=== PATIENT | female | born 1985 | race African-American/Black ===

== ENCOUNTER 2020-07-13 10:04 | Emergency (ER) | payer OTHER ==
[2020-07-13 10:24] VITALS: BP 122/76; PULSE 88; TEMP 98.7; BMI 26.5
[2020-07-13 11:34] LABS: BASO % 0.7 % (0-2.0); EOS % 3.6 % (0-4.5); HEMATOCRIT 38.5 % (32.4-45.2); HEMOGLOBIN 12.3 GM/dL (10.7-15.3); LYMPH % 18.6 % (8-40); MCH 23.8 pg (25.7-33.7); MCHC 31.8 g/dl (32.0-36.0); MEAN CELL VOLUME 74.8 fl (80-96); MEAN PLT VOLUME 8.7 fl (7.5-11.1); MONO % 7.4 % (3.8-10.2); NEUT % 69.7 % (42.8-82.8); PLATELET COUNT 269 K/MM3 (134-434); RBC 5.15 M/mm3 (3.60-5.2); RDW 15.3 % (11.6-15.6); WHITE BLOOD COUNT 9.5 K/mm3 (4.0-10.0)
[2020-07-13 11:37] LABS: EPI CELLS 9 /uL (0-25.1); HYALINE CASTS 0 /uL (0-3.1); URINE APPEARANCE CLEAR; URINE BACTERIA 382 /uL (0-1359); URINE BILIRUBIN NEGATIVE (NEGATIVE); URINE COLOR YELLOW; URINE GLUCOSE (UA) NEGATIVE (NEGATIVE); URINE KETONE NEGATIVE (NEGATIVE); URINE LEUK ESTERASE NEGATIVE (NEGATIVE); URINE NITRITE NEGATIVE (NEGATIVE); URINE PROTEIN NEGATIVE (NEGATIVE); URINE RBC 1 /uL (0-23.9); URINE UROBILINOGEN 0.2 mg/dL (0.2-1.0); URINE WBC 7 /uL (0-25.8)
[2020-07-13 12:00] LABS: BILIRUBIN,TOTAL 0.2 mg/dL (0.2-1); BLOOD UREA NITROGEN 7.3 mg/dL (7-18); POTASSIUM 4.2 mmol/L (3.5-5.1); TOT PROT 8.2 g/dl (6.4-8.2)
--- NOTE | 2020-07-13 12:12 | PDOC ---
History of Present Illness - General Chief Complaint: Vaginal Bleeding Stated Complaint: VAGINAL BLEEDING Time Seen by Provider: 07/13/20 10:50 History Source: Patient Exam Limitations: No Limitations - History of Present Illness Travel History: No Initial Comments: 07/13/20 12:12 34-year-old 7-week female presents to ED with complaints of vaginal bleeding since this morning after urinating. Patient also complained of mild mid suprapubic cramping upon arrival to the ED. Patient has no urinary complaints, fever, chills, nausea, vaginal discharge prior to bleeding, or history. Patient at denies any exertion, recent injury, dyspareunia. Timing/Duration: reports: constant Quality: reports: mild, cramping Abdominal Pain Onset Location: reports: suprapubic Pain Radiation: reports: no radiation Activities at Onset: reports: none Aggravating Factors: improves with: None Alleviating Factors: improves with: None Past History - Travel History Traveled outside of the country in the last 30 days: No Close contact w/someone who was outside of country & ill: No - Medical History Allergies/Adverse Reactions: Allergies Allergy/AdvReac Type Severity Reaction Status Date / Time No Known Allergies Allergy Verified 07/13/20 10:19 Home Medications: Ambulatory Orders No Home Medications 0 dose .ROUTE UTDICT 01/04/13 Sucralfate [Carafate] 1 gm PO QID #20 tablet 11/15/13 COPD: No GI Disorders: Yes (GASTRITIS) - Reproductive History Is Patient Now?: Yes - Psycho-Social/Smoking History Patient Lives Alone: No Lives with/in: spouse/SO Smoking Status: No Smoking History: Never smoked Have you smoked in the past 12 months: No Number of Cigarettes Smoked Daily: 0 - Substance Abuse Hx (Audit-C & DAST Scrn) How often the patient has a drink containing alcohol: Monthly or less Number of drinks the patient has on a typical day: 1 or 2 How often the patient has six or more drinks on one occasion: Never Score: In Men: 4 or > Positive; In Women: 3 or > Positive: 1 Screen Result (Pos requires Nsg. Audit-10AR): Negative In the last yr the pt used illegal drug/Rx for NonMed reason: No Score: Yes response is considered Positive: 0 Screen Result (Positive result requires Nsg. DAST-10): Negative Review of Systems - Review of Systems Able to Perform ROS?: Yes Constitutional: No: Symptoms Reported HEENTM: No: Symptoms Reported Respiratory: No: Symptoms reported Cardiac (ROS): No: Symptoms Reported ABD/GI: Yes: Abdominal cramping : Yes: Discharge Musculoskeletal: No: Symptoms Reported Integumentary: No: Symptoms Reported Neurological: No: Symptoms reported *Physical Exam - Vital Signs Last Vital Signs Temp Pulse Resp BP Pulse Ox 98.7 F 88 16 122/76 100 07/13/20 10:19 07/13/20 10:19 07/13/20 10:19 07/13/20 10:07/13/20 10:19 - Physical Exam General Appearance: Yes: Nourished, Appropriately Dressed. No: Apparent Distress HEENT: negative: Pale Conjunctivae Neck: positive: Supple Respiratory/Chest: positive: Lungs Clear, Normal Breath Sounds. negative: Respiratory Distress, Accessory Muscle Use Cardiovascular: positive: Regular Rhythm, Regular Rate. negative: Murmur Female Pelvic Exam: positive: cervical os closed, vaginal bleeding (Bright red a nd moderate amount no clots). negative: normal adnexa, CMT Gastrointestinal/Abdominal: positive: Soft. negative: Tenderness Musculoskeletal: negative: CVA Tenderness Extremity: positive: Normal Inspection Integumentary: positive: Normal Color, Warm, Moist Neurologic: positive: Motor Strength 5/5 (ambulatory) ED Treatment Course - LABORATORY CBC & Chemistry Diagram: 07/13/20 11:25 07/13/20 10:51 - ADDITIONAL ORDERS Additional order review: Laboratory Results 07/13/20 11:25 Urine Color Yellow Urine Appearance Clear Urine pH 8.0 Ur Specific [place] 1.010 Urine Protein Negative Urine Glucose (UA) Negative Urine Ketones Negative Urine Blood 3+ H Urine Nitrite Negative Urine Bilirubin Negative Urine Urobilinogen 0.2 Ur Leukocyte Esterase Negative Urine WBC (Auto) 7 Urine RBC (Auto) 1 Urine Casts (Auto) 0 U Epithel Cells (Auto) 9 Urine Bacteria (Auto) 382 07/13/20 11:25 RBC 5.15 MCV 74.8 L MCHC 31.8 L RDW 15.3 MPV 8.7 Neutrophils % 69.7 Lymphocytes % 18.6 Monocytes % 7.4 Eosinophils % 3.6 Basophils % 0.7 - RADIOLOGY Radiology Studies Ordered: Category Date Time Status TRANSVAGINAL US PREG [US] Stat Ultrasound 07/13/20 10:51 Ordered Medical Decision Making - Medical Decision Making 07/13/20 12:15 Chief complaint: Vaginal bleeding since this morning 7 weeks no other complaint except for mild suprapubic cramping. Exam: Patient moderate amount of bright red blood in vault no clots no adnexal tenderness. os closed Plan: Labs, urine and ultrasound ordered 07/13/20 13:35 Laboratory Tests 07/13/20 07/13/20 07/13/20 10:51 10:51 11:25 WBC 9.5 Hgb 12.3 Hct 38.5 Neutrophils % 69.7 Sodium 138 Potassium 4.2 Chloride 107 Carbon Dioxide 25 BUN 7.3 Creatinine 1.0 Random Glucose 89 AST 12 L ALT 33 Beta HCG, Quant 5939.4 Urine Blood Urine Nitrite Urine Bilirubin Ur Leukocyte Esterase Urine WBC (Auto) Urine Bacteria (Auto) Blood Type 07/13/20 07/13/20 11:25 11:25 WBC Hgb Hct Neutrophils % Sodium Potassium Chloride Carbon Dioxide BUN Creatinine Random Glucose AST ALT Beta HCG, Quant Urine Blood 3+ H Urine Nitrite Negative Urine Bilirubin Negative Ur Leukocyte Esterase Negative Urine WBC (Auto) 7 Urine Bacteria (Auto) 382 Blood Type O POSITIVE 07/13/20 15:[address] 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. He states after reviewing the ultrasound patient may be discharged and follow-up in 48 hours for repeat beta and ultrasound. He also states patient may follow-up in the clinic versus the ER. Patient given both options. Patient remained stable. Repeat vitals stable. Patient understands the severity and symptoms to be aware of if they occur prior to the 2 days. Discharge - Discharge Information Problems reviewed: Yes Clinical Impression/Diagnosis: Threatened Condition: Good Disposition: HOME - Follow up/Referral - Patient Discharge Instructions Patient Printed Discharge Instructions: DI for Threatened Additional Instructions: As discussed with REGISTERED NURSE RENAL you need a repeat beta hCG along with an ultrasound done in 2 days. If you develop worsening abdominal pain, heavy vaginal bleeding please return sooner. - Post Discharge Activity
== END 2020-07-13 16:00 | disposition home or self-care (01) ==
LOC: JER 10:04
DX: O20.0 Threatened abortion (principal)
CPT/HCPCS: 36415; 76817-TC; 80053; 81003; 84702; 85025; 86850; 86900; 86901; 87086; 99284-25

== ENCOUNTER 2020-07-15 09:45 | Emergency (ER) | payer OTHER ==
[2020-07-15 09:52] VITALS: BP 114/79; PULSE 77; TEMP 98.6; BMI 26.5
--- OUTSIDE RECORDS SUMMARY | 2020-07-15 10:16 | XMS ---
:1985 Author Organization [facility] Support Name Relationship Address Phone [employer] Unavailable [address] [address] NALDO BARTLETT GRANDMOTHER [address] [place] [address] NALDO BARTLETT Grandparent [address] [place] [address] Re-disclosure Warning The records that you are about to access may contain information from federally- assisted alcohol or drug abuse programs. If such information is present, then the following federally mandated warning applies: This information has been disclosed to you from records protected by federal confidentiality rules (42 CFR part 2). The federal rules prohibit you from making any further disclosure of this information unless further disclosure is expressly permitted by the written consent of the person to whom it pertains or as otherwise permitted by 42 CFR part 2. A general authorization for the release of medical or other information is NOT sufficient for this purpose. The Federal rules restrict any use of the information to criminally investigate or prosecute any alcohol or drug abuse patient.The records that you are about to access may contain highly sensitive health information, the redisclosure of which is protected by Article 27-F of the [facility] Public Health law. If you continue you may haveaccess to information: Regarding HIV / AIDS; Provided by facilities licensed or operated by the [facility] Office of Mental Health; or Provided by the [facility] Office for People With Developmental Disabilities. If such information is present, then the following [facility] mandated warning applies: This information has been disclosed to you from confidential records which are protected by state law. State law prohibits you from making any further disclosure of this information without the specific written consent of the person to whom it pertains, or as otherwise permitted by law. Any unauthorized further disclosure in violation of state law may result in a fine or fpc sentence or both. A general authorization for the release of medical or other information is NOT sufficient authorization for further disclosure. Insurance Providers Payer name Policy type Policy ID Covered Covered republican's Policy P concepcion / Coverage republican ID relationship to [place] [facility] ormation type lyon [facility] [id number] [facility] [id number] [facility] HS B 2011 SP HS B [id number] SOLUTIONS [id number]
--- NOTE | 2020-07-15 10:26 | PDOC ---
History of Present Illness - General Chief Complaint: [facility] [place] Stated Complaint: BETA HCG LEVEL Time Seen by Provider: 07/15/20 09:53 History Source: Patient Exam Limitations: No Limitations - History of Present Illness Initial Comments: 07/15/20 10:21 Patient is a 34-year-old female who presents to the ED for a repeat beta-hCG and ultrasound after having a miscarriage 2 days ago. She states her bleeding has slowed down and her pain has subsided. She was told that she does not have an ectopic . The patient states that she was told she can either come to the ED or follow-up in Dr. Richards's office. She denies any dizziness or lightheadedness. Past History - Medical History Allergies/Adverse Reactions: Allergies Allergy/AdvReac Type Severity Reaction Status Date / Time No Known Allergies Allergy Verified 07/13/20 10:19 Home Medications: Ambulatory Orders No Home Medications 0 dose .ROUTE UTDICT 01/04/13 Sucralfate [Carafate] 1 gm PO QID #20 tablet 11/15/13 COPD: No GI Disorders: Yes (GASTRITIS) - Reproductive History Is Patient Now?: Yes (#): 2 Para: 1 Therapeutic (s) & number: No - Psycho-Social/Smoking History Smoking Status: No Smoking History: Never smoked Have you smoked in the past 12 months: No Number of Cigarettes Smoked Daily: 0 Information on smoking cessation initiated: No - Substance Abuse Hx (Audit-C & DAST Scrn) How often the patient has a drink containing alcohol: Never Score: In Men: 4 or > Positive; In Women: 3 or > Positive: 0 Screen Result (Pos requires Nsg. Audit-10AR): Negative In the last yr the pt used illegal drug/Rx for NonMed reason: No Score: Yes response is considered Positive: 0 Screen Result (Positive result requires Nsg. DAST-10): Negative Review of Systems - Review of Systems Comments:: 07/15/20 10:23 - Review of Systems Able to Perform ROS?: Yes Constitutional: No: Fever, Chills, Loss of Appetite, Night Sweats, Weakness HEENTM: No: Eye Pain, Vision changes, Ear Pain, Throat Pain, Throat Swelling, Mouth Pain, Difficulty Swallowing Respiratory: No: Cough, Shortness of Breath, Wheezing, Sputum Production Cardiac (ROS): No: Chest Pain, Chest Tightness, Palpitations, Irregular Heart Beat, Edema ABD/GI: No: Nausea, Vomiting, Abdominal Pain, Diarrhea : No Dysuria, No Hematuria, No Frequency, No Urgency, positive: Moderate vaginal bleeding; spontaneous Musculoskeletal: No: Muscle Pain, Back Pain, Joint Pain, Muscle Weakness, Neck Pain Integumentary: No: Lesions, Rash Neurological: No: Headache, Numbness, Tingling, Weakness, Speech Difficulties *Physical Exam - Vital Signs Last Vital Signs Temp Pulse Resp BP Pulse Ox 98.6 F 77 18 114/79 100 07/15/20 09:49 07/15/20 09:49 07/15/20 09:49 07/15/20 09:49 07/15/20 09:49 - Physical Exam 07/15/20 10:24 - Physical Exam General Appearance: Nourished, Appropriately Dressed, No Distress HEENT: EOMI, Normal Voice, Hearing Grossly Normal, Neck: Supple, No Lymphadenopathy (R), No Lymphadenopathy (L), No Rigidity, No Decreased range of motion Respiratory/Chest: Lungs Clear, Normal Breath Sounds. No Respiratory Distress, No Accessory Muscle Use Cardiovascular: Regular Rhythm, Regular Rate, S1, S2 Gastrointestinal/Abdominal: Normal Bowel Sounds, Soft. Non-tender, No Guarding, No Rebound, No Rigidity; no reproducible abdominal or suprapubic tenderness to palpation. LOCKSTITCH HEMMER: Deferred as per patient request Musculoskeletal: Normal Inspection. No Decreased Range of Motion Extremity: Normal Capillary Refill, Normal Inspection Integumentary: Normal Color, Dry. No Rash Neurologic: form drafter II-XII NML intact, Fully Oriented, Alert, Normal Mood/Affect, Normal Response ED Treatment Course - ADDITIONAL ORDERS Additional order review: 07/15/20 11:56 Laboratory Tests 07/13/20 07/15/20 10:51 10:20 Beta HCG, Quant 5939.4 1772.7 - RADIOLOGY Radiology Studies Ordered: Category Date Time Status TRANSVAGINAL US PREG [US] Stat Ultrasound 07/15/20 10:06 Ordered Medical Decision Making - Medical Decision Making 07/15/20 10:24 Assessment: Patient is a 34-year-old female who presents to the ED for repeat beta-hCG and transvaginal ultrasound after likely spontaneous 2 days ago. Plan: -Beta hCG quantitative ordered -Transvaginal ultrasound ordered -Will reassess 07/15/20 11:56 Patient has been made aware that her beta-hCG has dropped from 5000+ to 1700 today. This is consistent with miscarriage. Ultrasound radiology report pending. Patient sitting comfortably in the chair. 07/15/20 12:39 It appears that the patient has completed her spontaneous . Her beta- hCG has been downtrending. Her ultrasound shows no intrauterine gestational sac, normal thickness of the endometrial stripe and both ovaries appear unremarkable with normal vascular flow. The patient can continue her normal activity but avoid any physical strenuous activity until cleared by TABLET TESTER. She can follow-up with Dr. Richards outpatient for further evaluation and treatment. She understands and agrees with this treatment plan and she is stable for discharge. Discharge - Discharge Information Problems reviewed: Yes Clinical Impression/Diagnosis: Complete Condition: Stable Disposition: HOME - Follow up/Referral Referrals: [facility] [Primary Care Provider] - Bassem Smith MD [Staff Physician] - 3 days - Patient Discharge Instructions Patient Printed Discharge Instructions: DI for Miscarriage Additional Instructions: Avoid any strenuous activity or physical activity. Get plenty of rest and drink plenty of fluids. Be sure to follow-up with Dr. Richards for further evaluation and treatment. - Post Discharge Activity Work/Back to School Note: Back to Work
== END 2020-07-15 12:46 | disposition home or self-care (01) ==
LOC: JERFT 09:45
DX: O03.9 Complete or unspecified spontaneous abortion without complication (principal)
CPT/HCPCS: 36415; 76817-TC; 84702; 99284-25